=== PATIENT | female | born 1950 | race Caucasian/White ===

== ENCOUNTER 2024-10-19 08:47 | Outpatient (CLI) | payer MEDICARE, MEDICAID, SELFPAY ==
--- OUTSIDE RECORDS SUMMARY | 2007-05-14 05:06 | XMS_ITS | Continuity of Care Document ---
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 Name Role Phone [facility], [facility] Unavailable Unavail able Villa Hendricks Unavailable Unavailable Procedures Procedure Date BF Plastic Sphcyl [place] To +/-4d .12-2d Frames Deluxe Tint Photochromatic, Plastic Tax - Medical Post-op Follow-up Visit Post-op Follow-up Visit Post-op Follow-up Visit Remove Cataract, Insert Lens Office/outpatient Visit, Est Echo Exam Of Eye Miscellaneous Vision Service - Supplies Advance Directives Directive Yes / No Effective Date File Name No Information Encounters Encounter Description Practice Location Reason(s) For Visit Diagnoses Date Provider Providers Copied on Encounter [facility], [address] [place] [address] [address], [place], [place], [id number], [place] tel:[phone] SEC [facility] No Information 8-200 8 [facility] . [address] [facility], [address], [place], [place], [id number], [place]. tel:[phone] Referring Provider: Dmitriy Allan, [address] [facility], [place], [address]. tel:[phone] ing Provider: Villa Hendricks, [address] [facility], [place], [address]. tel:[phone] [facility], [address], [place], [place], [id number], [place] tel:[phone] [facility] No Information 8 Doisy Edward. [address] [facility] , [address], [place], [place], [facility], [place]. tel:[phone] Referring Provider: Dmitriy Allan, [address] [place] [address], [facility]. tel:[phone] [facility], [address], [place], [place], [id number], [place] tel:[phone] [facility] [place] No Information 8 Doisy Edward. [address] [facility] , [address], [place], [place], [facility], [place]. tel:[phone] Referring Provider: Dmitriy Allan, [address] [place] [address], [facility]. tel:[phone] [facility], [address], [place], [place], [id number], [place] tel:[phone] [facility] [place] No Information 8 Doisy Edward. [facility] , [address], [place], [place], [facility], [place]. tel:[phone] Referring Provider: Dmitriy Allan, [address] [place] [address], [facility]. tel:[phone] [facility], [address], [place], [place], [id number], [place] tel:[phone] [facility] No Information 8 Doisy Edward. [address] [facility] , [address], [place], [facility], [place]. tel:[phone] Referring Provider: Dmitriy Allan, [address] [place] [address], [facility]. tel:[phone] Office/outpat ient Visit, Est [facility], [id number] [place] [address] [address], [place], [place], [id number], tel:[phone] SEC [facility] No Information 200 8 Johanna Reynoso. [address] [place] [address] [address], [address], [place], [facility], [place]. tel:[phone] Referring Provider: Dmitriy Allan, [address] [place] [address], [facility]. tel:[phone] [facility], [address] [place], [place] [address], [place], [place], [id number], tel:[phone] SEC [facility] No Information 7 [facility] . [address] [facility], [address], [place], [place], [id number], [place]. tel:[phone] Referring Provider: Dmitriy Allan, [facility] [place], [place], [facility]. tel:[phone] ing Provider: Villa Hendricks, [address] [place] [address], [facility]. tel:[phone] Family History Family Member Type Diagnosis Age At Onset No Information Payers Payer name Insurance type Covered libertarian ID Authoriza tion(s) No Information Social History Type Description Quantity Date Captured Comments Sex Female Smoking Status No Information Chief Complaint And Reason For Visit No Information Reason For Referral Reason For Referral No Information History Of Present Illness Encounter Date Complaint History Of Prese nt Illness No Information Functional Status Date Functional Assessmen t No Information Instructions Date Instruction Additional Infor mation No Information Assessments Type Assessment Date No Information Patient Care Teams Name Effective Dates (start - stop) Status Members No Information
--- NOTE | ~2024-10-19 | CT_ITS ---
EXAMINATION: CT lung screening DATE: 10/19/2024 09:08 INDICATION: Nicotine dependence TECHNIQUE: Computed tomography (CT) of the chest was performed without intravenous contrast. Additional 3D reconstructions utilizing coronal maximum intensity projection (MIP) were performed. Automated exposure control and iterative reconstruction technique were employed. The dose-length product was 58 .89 mGy-cm. COMPARISON: None FINDINGS: Mild discoid atelectasis/scarring in the right middle lobe and lingula. There are few scattered very small pulmonary nodules in both lungs the largest measuring 3 mm in the right lower lobe. There is a calcified left lower lobe nodule with calcified left hilar and mediastinal lymph nodes consistent with old granulomatous disease. No pneumonia, pulmonary edema or pleural effusion. Heart size is normal. Atherosclerotic coronary artery calcifications and aortic valve calcific lesion. No pericardial effusion. Thoracic aorta is normal in caliber. No pathologically enlarged thoracic lymphadenopathy. Mild thoracic dextrocurvature and mild kyphosis with mild spondylosis. IMPRESSION: 1. Lung-RADS category 2: Benign appearance or behavior. Continue annual screening with noncontrast low-dose chest CT in 12 months. Reviewed, dictated and finalized at location A. IMPRESSION: 1. Lung-RADS category 2: Benign appearance or behavior. Continue annual screeni ng with noncontrast low-dose chest CT in 12 months.
== END 2024-10-19 08:48 | disposition home or self-care (01) ==
PROVIDERS: PCP Internal Medicine; Visit Provider Internal Medicine
DX: Z12.2 Encounter for screening for malignant neoplasm of respiratory organs (principal); F17.210 Nicotine dependence, cigarettes, uncomplicated
CPT/HCPCS: 71271

== ENCOUNTER 2024-11-24 12:53 | Outpatient (CLI) | payer MEDICARE, MEDICAID, SELFPAY ==
--- NOTE | ~2024-11-24 | DEXA_ITS ---
Bone Density Report Name: ALPA JUAN Age: 74 Sex: Female Ethnicity: White Date of : 1950 Indication: postmenopausal; screening for osteoporosis; Referring Provider: MELISSA VARGHESE Study: Bone densitometry was performed. Exam Date: November 24, 2024 Accession number: [id number] Bone Density: Region BMD T-score Z-score Classification AP Spine(L1-L4) 0.840 -1.9 0.6 Osteopenia Femoral Neck (Left) 0.636 -1.9 0.2 Osteopenia Total Hip (Left) 0.701 -2.0 -0.1 Osteopenia Femoral Neck (Right) 0.549 -2.7 -0.6 Osteoporosis Total Hip (Right) 0.601 -2.8 -0.9 Osteoporosis Total Hip Mean 0.651 -2.4 -0.5 Osteopenia World Health Organization criteria for BMD impression classify patients as: Normal (T-score at or above -1.0), Osteopenia (T-score between -1.0 and -2.5), or Osteoporosis (T-score at or below -2.5). 10-year Fracture Risk: FRAX not reported because: Some T-score for Spine Total or Hip Total or Femoral Neck at or below -2.5 Impression: The patient has osteoporosis, based on the Right Total Hip T-score. Discussion: INCREASED RISK OF FRACTURE. BONE DENSITY IS UNDESIRABLY LOW AT ONE OR MORE SKELETAL SITES, CONSISTENT WITH POSTMENOPAUSAL OSTEOPOROSIS. This patient's lowest T-score meets the World Health Organization's (WHO) criteria for osteoporosis at one or more sites (T-score -2.5 or below). In untreated patients, the risk of osteoporotic fracture increases approximately two-fold for each 1.0 SD decrease in T-score. Low bone density is not the only risk factor for fracture; also consider factors such as patient's age, frailty or poor health, risk of falling, risk of injury, previous osteoporotic fracture, family history of osteoporosis, cigarette smoking, low body weight, etc. Not everyone with low bone mineral density has osteoporosis; osteomalacia and other metabolic bone disorders should also be considered. Patients who have osteoporosis should be evaluated for specific diseases and conditions (secondary causes) that may cause or contribute to bone loss. The [place] [employer]ocrinologists (AACE) and National Osteoporosis Foundation (NOF) recommend pharmacologic intervention for all postmenopausal women whose T-score is in this range. The patient should follow a healthful lifestyle (good nutrition with adequate calcium and vitamin D, and appropriate weight-bearing exercise). Follow-Up: Consider a repeat BMD and Vertebral Fracture Assessment (VFA) exam in 2 years or sooner if medically necessary, to reassess this patient's status. Reported by: NEERAJ on 11/25/2024 3:04:00 PM. Reviewed, dictated and finalized at location A.
== END 2024-11-24 12:54 | disposition home or self-care (01) ==
LOC: ANHFOHIMG 12:54
PROVIDERS: PCP Internal Medicine; Visit Provider Anesthesiology
DX: M81.0 Age-related osteoporosis without current pathological fracture (principal); M85.89 Other specified disorders of bone density and structure, multiple sites; Z13.820 Encounter for screening for osteoporosis
CPT/HCPCS: 77080